=== PATIENT | male | born 1990 | race Caucasian/White ===

== ENCOUNTER 2018-07-31 12:00 | Emergency (ER) | payer SELFPAY ==
[~2018-07-31] VITALS: Ht 182.8 cm; Wt 63.5 kg
[2018-07-31 12:00] VITALS: BP 128/74
[2018-07-31] MEDS ORDERED: SEPTDS PO (12:30)
[2018-07-31] MEDS ORDERED: CEPHALEXIN500 M1 PO (12:30)
== END 2018-07-31 12:47 | disposition home or self-care (01) ==
LOC: ED 12:00
DX: L03.011 Cellulitis of right finger (principal); F17.200 Nicotine dependence, unspecified, uncomplicated

== ENCOUNTER 2019-08-19 07:51 | Emergency (ER) | payer SELFPAY ==
[~2019-08-19] VITALS: Ht 182.8 cm; Wt 72.6 kg
[~2019-08-19 07:51] MED LIST: CEPHALEXIN500 M1 PO; SEPTDS PO
[2019-08-19 10:30] VITALS: BP 128/72
== END 2019-08-19 11:15 | disposition home or self-care (01) ==
LOC: ED 07:51
DX: S40.011A Contusion of right shoulder, initial encounter (principal); R07.9 Chest pain, unspecified; W10.8XXA Fall (on) (from) other stairs and steps, initial encounter; Y93.89 Activity, other specified; Y92.89 Other specified places as the place of occurrence of the external cause; Y99.8 Other external cause status

== ENCOUNTER 2022-06-08 10:37 | Emergency (ER) | payer SELFPAY ==
[~2022-06-08] VITALS: Wt 85.3 kg
[2022-06-08 11:06] LABS: BASO % 0.3 % (0.0-1.0); EOS # 0.2 10*3/uL (0.0-0.4); HEMATOCRIT 46.3 % (42.0-52.0); LYMPH # 3.1 10*3/uL (1.3-4.4); LYMPH % 35.5 % (27.0-41.0); MEAN CELL VOLUME 86.5 fl (80.0-94.0); MEAN CORPUSCULAR HGB CONC 33.5 g/dl (33.0-37.0); MEAN PLATELET VOLUME 9.3 fl (9.6-12.3); MONO # 0.9 10*3/uL (0.1-1.0); MONO % 10.6 % (3.0-9.0); NEUT # 4.4 10*3/uL (2.3-7.9); NEUT % 51.3 % (47.0-73.0); PLATELET COUNT AUTOMATED 321 10*3/uL (130-400); RED BLOOD COUNT 5.35 10*6/uL (4.50-5.90); WHITE BLOOD COUNT 8.6 10*3/uL (4.8-10.8)
[2022-06-08 11:23] LABS: ACT PARTIAL THROMBO TIME 25.6 SECONDS (20.0-32.1)
[2022-06-08 11:26] LABS: ALKALINE PHOSPHATASE 91 U/L (46-116); BUN 11 mg/dl (9-23); CHLORIDE 104 mmol/L (98-107); LIPASE 27 U/L (12-53); POTASSIUM 3.7 mmol/L (3.4-5.1); SGPT/ALT 31 U/L (10-49)
[2022-06-08 15:14] VITALS: BP 131/85
== END 2022-06-08 17:00 | disposition home or self-care (01) ==
LOC: ED 10:37
PROVIDERS: Emergency Medicine
DX: R56.9 Unspecified convulsions (principal); S01.312A Laceration without foreign body of left ear, initial encounter; W18.39XA Other fall on same level, initial encounter; Y93.89 Activity, other specified; Y92.89 Other specified places as the place of occurrence of the external cause; Y99.8 Other external cause status

== ENCOUNTER 2022-06-19 08:34 | Emergency (ER) | payer SELFPAY ==
[~2022-06-19] VITALS: Wt 81.6 kg
[2022-06-19 08:39] VITALS: BP 135/90
[2022-06-20] MEDS ORDERED: KEPPRA750 MG PO (14:58)
== END 2022-06-19 09:02 | disposition home or self-care (01) ==
LOC: ED 08:34
DX: S01.312D Laceration without foreign body of left ear, subsequent encounter (principal); M25.512 Pain in left shoulder; X58.XXXD Exposure to other specified factors, subsequent encounter

== ENCOUNTER 2022-06-20 09:00 | Emergency (ER) | payer SELFPAY ==
[2022-06-20 09:30] LABS: BASO % 0.3 % (0.0-1.0); EOS # 0.1 10*3/uL (0.0-0.4); EOS % 1.4 % (1.0-4.0); LYMPH # 2.6 10*3/uL (1.3-4.4); LYMPH % 30.4 % (27.0-41.0); MEAN CELL VOLUME 87.2 fl (80.0-94.0); MEAN CORPUSCULAR HGB 28.6 pg (27.0-31.0); MEAN CORPUSCULAR HGB CONC 32.8 g/dl (33.0-37.0); MONO # 0.8 10*3/uL (0.1-1.0); MONO % 9.4 % (3.0-9.0); NEUT % 58.2 % (47.0-73.0); PLATELET COUNT AUTOMATED 356 10*3/uL (130-400); RED BLOOD COUNT 5.39 10*6/uL (4.50-5.90); RED CELL DISTRI WIDTH 14.3 % (0-14.5); WHITE BLOOD COUNT 8.6 10*3/uL (4.8-10.8)
[2022-06-20 09:47] LABS: ALKALINE PHOSPHATASE 115 U/L (46-116); BUN 11 mg/dl (9-23); CHLORIDE 104 mmol/L (98-107); LIPASE 27 U/L (12-53); POTASSIUM 4.3 mmol/L (3.4-5.1); SGPT/ALT 30 U/L (10-49); TOTAL PROTEIN 8.2 gm/dL (6.0-8.0)
[2022-06-20 09:52] LABS: ACT PARTIAL THROMBO TIME 26.9 SECONDS (20.0-32.1)
[2022-06-20 11:25] VITALS: BP 155/88
[2022-06-20] MEDS ORDERED: KEPPRA750 MG PO (14:58)
== END 2022-06-20 14:34 | disposition home or self-care (01) ==
LOC: ED 09:00
PROVIDERS: Emergency Medicine
DX: R56.9 Unspecified convulsions (principal)

== ENCOUNTER → 2022-06-21 | Outpatient (CLI) | payer SELFPAY ==
[~2022-06-21] MED LIST changes: +KEPPRA750 MG PO
== END | disposition home or self-care (01) ==
LOC: RESCLI 09:15
PROVIDERS: ATTEND Internal Medicine
DX: R56.9 Unspecified convulsions (principal); F17.200 Nicotine dependence, unspecified, uncomplicated; Z98.890 Other specified postprocedural states; Z79.899 Other long term (current) drug therapy

== ENCOUNTER 2022-08-02 10:16 | Emergency (ER) | payer SELFPAY ==
[2022-08-02 10:22] VITALS: BP 134/72
[2022-08-02] MEDS ORDERED: KEPPRA750 MG PO (10:24)
== END 2022-08-02 10:27 | disposition home or self-care (01) ==
LOC: ED 10:16
DX: G40.909 Epilepsy, unspecified, not intractable, without status epilepticus (principal); Z76.0 Encounter for issue of repeat prescription

== ENCOUNTER 2022-08-28 11:22 | Emergency (ER) | payer SELFPAY ==
[~2022-08-28] VITALS: Ht 172.7 cm; Wt 86.2 kg
[2022-08-28 11:38] VITALS: BP 131/80
== END 2022-08-28 13:11 | disposition home or self-care (01) ==
LOC: ED 11:22
DX: S92.411A Displaced fracture of proximal phalanx of right great toe, initial encounter for closed fracture (principal); X58.XXXA Exposure to other specified factors, initial encounter; Y93.89 Activity, other specified; Y92.89 Other specified places as the place of occurrence of the external cause; Y99.8 Other external cause status

== ENCOUNTER → 2022-09-18 | Outpatient (CLI) | payer SELFPAY | END | disposition home or self-care (01) | LOC: RESCLI 13:10 | PROVIDERS: ATTEND Internal Medicine | DX: S92.901A Unspecified fracture of right foot, initial encounter for closed fracture (principal); R56.9 Unspecified convulsions; F17.210 Nicotine dependence, cigarettes, uncomplicated; F10.90 Alcohol use, unspecified, uncomplicated; F12.90 Cannabis use, unspecified, uncomplicated; Z79.899 Other long term (current) drug therapy; Z88.8 Allergy status to other drugs, medicaments and biological substances; Z98.890 Other specified postprocedural states; X58.XXXA Exposure to other specified factors, initial encounter; Y93.89 Activity, other specified; Y92.89 Other specified places as the place of occurrence of the external cause; Y99.8 Other external cause status ==

== ENCOUNTER 2023-07-09 03:32 | Emergency (ER) | payer SELFPAY ==
[~2023-07-09] VITALS: Wt 81.6 kg
[2023-07-09 03:38] VITALS: BP 137/95
[2023-07-09] MEDS ORDERED: CYCLOBENZAPRINE10 MG PO (05:16)
[2023-07-09] MEDS ORDERED: Cyclobenzaprine Hydrochlorid 10 MG TAB PO ONE (05:20)
== END 2023-07-09 05:32 | disposition home or self-care (01) ==
LOC: ED 03:32
DX: S16.1XXA Strain of muscle, fascia and tendon at neck level, initial encounter (principal); Z87.891 Personal history of nicotine dependence; X58.XXXA Exposure to other specified factors, initial encounter; Y93.89 Activity, other specified; Y92.89 Other specified places as the place of occurrence of the external cause; Y99.8 Other external cause status

== ENCOUNTER 2023-08-11 09:03 | Emergency (ER) | payer SELFPAY ==
[~2023-08-11] VITALS: Ht 177.8 cm; Wt 81.6 kg
[~2023-08-11 09:03] MED LIST changes: +CYCLOBENZAPRINE10 MG PO
[2023-08-11 09:18] VITALS: BP 138/76
[2023-08-11] MEDS ORDERED: Acetaminophen/Oxycodone 5 MG/325 MG TABLET PO ONE (09:25)
[2023-08-11] MEDS ORDERED: MELOXICAM15 MG PO (09:28)
== END 2023-08-11 09:42 | disposition home or self-care (01) ==
LOC: ED 09:03
DX: S43.402A Unspecified sprain of left shoulder joint, initial encounter (principal); M54.2 Cervicalgia; X50.0XXA Overexertion from strenuous movement or load, initial encounter; Y93.89 Activity, other specified; Y92.89 Other specified places as the place of occurrence of the external cause; Y99.0 Civilian activity done for income or pay

== ENCOUNTER 2023-10-24 12:20 | Emergency (ER) | payer OTHER ==
[~2023-10-24] VITALS: Ht 175.2 cm; Wt 86.2 kg
[~2023-10-24 12:20] MED LIST changes: +MELOXICAM15 MG PO
[2023-10-24 12:45] VITALS: BP 145/90
[2023-10-24 12:56] LABS: BASO % 0.3 % (0.0-1.0); EOS # 0.1 10*3/uL (0.0-0.4); HEMATOCRIT 45.2 % (42.0-52.0); LYMPH % 32.9 % (27.0-41.0); MEAN CELL VOLUME 87.9 fl (80.0-94.0); MEAN CORPUSCULAR HGB 29.2 pg (27.0-31.0); MEAN CORPUSCULAR HGB CONC 33.2 g/dl (33.0-37.0); MEAN PLATELET VOLUME 9.4 fl (9.6-12.3); MONO # 1.1 10*3/uL (0.1-1.0); NEUT # 4.9 10*3/uL (2.3-7.9); NEUT % 53.3 % (47.0-73.0); PLATELET COUNT AUTOMATED 318 10*3/uL (130-400); RED BLOOD COUNT 5.14 10*6/uL (4.50-5.90); RED CELL DISTRI WIDTH 14.6 % (0-14.5); WHITE BLOOD COUNT 9.2 10*3/uL (4.8-10.8)
[2023-10-24 13:14] LABS: ALKALINE PHOSPHATASE 89 U/L (46-116); BUN 10 mg/dl (9-23); CHLORIDE 104 mmol/L (98-107); SGPT/ALT 47 U/L (5-49); TOTAL PROTEIN 7.8 gm/dL (6.0-8.0)
[2023-10-24 13:15] LABS: ACT PARTIAL THROMBO TIME 24.1 SECONDS (20.0-32.1)
[2023-10-24 13:16] LABS: ETHYL ALCOHOL < 3.0 mg/dl (<3)
[2023-10-24] MEDS ORDERED: SODIUM CHLORIDE 0.9% 1,000 ML IV ONE (13:30)
[2023-10-24] MEDS ORDERED: LORazepam 2 MG/ML VIAL IV ONE (13:30)
[2023-10-24] MEDS ORDERED: LEVETIRACETAM 500 MG in SODIUM CHLORIDE 0.9% 100 ML IV ONE (15:40)
[2023-10-24] MEDS ORDERED: LEVETIRACETAM 1,500 MG in SODIUM CHLORIDE 0.9% 100 ML IV ONE (15:40)
[2023-10-24] MEDS ORDERED: LEVETIRACETAM IN NACL (ISO-OS) 100 ML IV ONE (15:45)
[2023-10-24] MEDS ORDERED: KEPPRA750 MG PO (16:42)
== END 2023-10-24 17:25 | disposition home or self-care (01) ==
LOC: ED 12:20
PROVIDERS: Internal Medicine
DX: G40.909 Epilepsy, unspecified, not intractable, without status epilepticus (principal); Z91.199 Patient's noncompliance with other medical treatment and regimen due to unspecified reason; V89.2XXA Person injured in unspecified motor-vehicle accident, traffic, initial encounter; Y93.I9 Activity, other involving external motion; Y92.488 Other paved roadways as the place of occurrence of the external cause; Y99.8 Other external cause status

== ENCOUNTER 2023-12-17 07:00 | Emergency (ER) | payer SELFPAY ==
[~2023-12-17] VITALS: Ht 162.5 cm; Wt 81.6 kg
[2023-12-17 07:14] VITALS: BP 130/80
[2023-12-17] MEDS ORDERED: MELOXICAM15 MG PO (08:03)
== END 2023-12-17 08:13 | disposition home or self-care (01) ==
LOC: ED 07:00
DX: S92.351A Displaced fracture of fifth metatarsal bone, right foot, initial encounter for closed fracture (principal); X58.XXXA Exposure to other specified factors, initial encounter; Y93.89 Activity, other specified; Y92.89 Other specified places as the place of occurrence of the external cause; Y99.8 Other external cause status

== ENCOUNTER 2024-03-14 10:11 | Emergency (ER) | payer SELFPAY ==
[~2024-03-14] VITALS: Ht 175.2 cm; Wt 77.1 kg
[2024-03-14 10:15] VITALS: BP 149/77
[2024-03-14] MEDS ORDERED: SODIUM CHLORIDE 0.9% 1,000 ML IV ONE (10:20)
[2024-03-14] MEDS ORDERED: LEVETIRACETAM IN NACL (ISO-OS) 100 ML IV ONE (10:20)
[2024-03-14 10:31] LABS: BASO % 0.4 % (0.0-1.0); EOS # 0.1 10*3/uL (0.0-0.4); EOS % 1.7 % (1.0-4.0); MEAN CORPUSCULAR HGB CONC 33.3 g/dl (33.0-37.0); MEAN PLATELET VOLUME 9.6 fl (9.6-12.3); MONO # 0.7 10*3/uL (0.1-1.0); MONO % 9.4 % (3.0-9.0); NEUT # 4.3 10*3/uL (2.3-7.9); NEUT % 56.9 % (47.0-73.0); PLATELET COUNT AUTOMATED 287 10*3/uL (130-400); RED BLOOD COUNT 5.52 10*6/uL (4.50-5.90); RED CELL DISTRI WIDTH 14.9 % (0-14.5); WHITE BLOOD COUNT 7.5 10*3/uL (4.8-10.8)
[2024-03-14 10:49] LABS: BUN 10 mg/dl (9-23); CHLORIDE 101 mmol/L (98-107); POTASSIUM 4.2 mmol/L (3.4-5.1)
[2024-03-14] MEDS ORDERED: KEPPRA750 MG PO (11:18)
== END 2024-03-14 11:07 | disposition home or self-care (01) ==
LOC: ED 10:11
PROVIDERS: Emergency Medicine
DX: R56.9 Unspecified convulsions (principal); F17.200 Nicotine dependence, unspecified, uncomplicated

== ENCOUNTER 2024-05-20 13:29 | Emergency (ER) | payer SELFPAY ==
[~2024-05-20] VITALS: Ht 182.8 cm; Wt 81.6 kg
[2024-05-20] MEDS ORDERED: diazePAM 10 MG/2 ML SYR IV ONE (13:45)
[2024-05-20] MEDS ORDERED: LEVETIRACETAM IN NACL (ISO-OS) 100 ML IV ONE (13:45)
[2024-05-20 13:53] VITALS: BP 127/80
[2024-05-20 14:10] LABS: BASO % 0.2 % (0.0-1.0); EOS % 0.3 % (1.0-4.0); HEMATOCRIT 48.1 % (42.0-52.0); MEAN CELL VOLUME 87.5 fl (80.0-94.0); MEAN CORPUSCULAR HGB 29.1 pg (27.0-31.0); MEAN CORPUSCULAR HGB CONC 33.3 g/dl (33.0-37.0); MEAN PLATELET VOLUME 9.1 fl (9.6-12.3); MONO # 0.8 10*3/uL (0.1-1.0); MONO % 7.2 % (3.0-9.0); NEUT # 8.1 10*3/uL (2.3-7.9); NEUT % 77.3 % (47.0-73.0); PLATELET COUNT AUTOMATED 311 10*3/uL (130-400); WHITE BLOOD COUNT 10.5 10*3/uL (4.8-10.8)
[2024-05-20 14:22] LABS: ACT PARTIAL THROMBO TIME 25.5 SECONDS (20.0-32.1)
[2024-05-20 14:31] LABS: ALKALINE PHOSPHATASE 98 U/L (46-116); BUN 9 mg/dl (9-23); CHLORIDE 103 mmol/L (98-107); LIPASE 29 U/L (12-53); POTASSIUM 4.1 mmol/L (3.4-5.1); SGPT/ALT 76 U/L (5-49); TOTAL PROTEIN 8.1 gm/dL (6.0-8.0)
[2024-05-20] MEDS ORDERED: KEPPRA1000 MG PO (15:39)
[2024-05-20] MEDS ORDERED: LIBRIUM5 MG PO (15:40)
[2024-05-20] MEDS ORDERED: VITAMIN B-1100 M2 PO (15:45)
== END 2024-05-20 15:50 | disposition home or self-care (01) ==
LOC: ED 13:29
PROVIDERS: Emergency Medicine
DX: R56.9 Unspecified convulsions (principal); F10.239 Alcohol dependence with withdrawal, unspecified; E86.0 Dehydration; Z79.01 Long term (current) use of anticoagulants; Y90.9 Presence of alcohol in blood, level not specified

== ENCOUNTER 2024-07-24 11:21 | Emergency (ER) | payer SELFPAY ==
[~2024-07-24] VITALS: Ht 177.8 cm; Wt 83.9 kg
[~2024-07-24 11:21] MED LIST changes: +KEPPRA1000 MG PO; +LIBRIUM5 MG PO; +VITAMIN B-1100 M2 PO
[2024-07-24 11:25] VITALS: BP 140/92
[2024-07-24] MEDS ORDERED: SODIUM CHLORIDE 0.9% 1,000 ML IV ONE (11:35)
[2024-07-24] MEDS ORDERED: LEVETIRACETAM IN NACL (ISO-OS) 100 ML IV ONE (11:35)
[2024-07-24 11:50] LABS: BASO % 0.3 % (0.0-1.0); EOS # 0.1 10*3/uL (0.0-0.4); EOS % 1.7 % (1.0-4.0); HEMATOCRIT 46.2 % (42.0-52.0); MEAN CELL VOLUME 88.3 fl (80.0-94.0); MEAN CORPUSCULAR HGB 29.4 pg (27.0-31.0); MEAN CORPUSCULAR HGB CONC 33.3 g/dl (33.0-37.0); MEAN PLATELET VOLUME 9.5 fl (9.6-12.3); MONO # 0.8 10*3/uL (0.1-1.0); MONO % 13.3 % (3.0-9.0); NEUT # 3.1 10*3/uL (2.3-7.9); NEUT % 51.8 % (47.0-73.0); PLATELET COUNT AUTOMATED 314 10*3/uL (130-400); RED BLOOD COUNT 5.23 10*6/uL (4.50-5.90); RED CELL DISTRI WIDTH 14.5 % (0-14.5); WHITE BLOOD COUNT 5.9 10*3/uL (4.8-10.8)
[2024-07-24 12:13] LABS: ALKALINE PHOSPHATASE 98 U/L (46-116); BUN 9 mg/dl (9-23); CHLORIDE 106 mmol/L (98-107); POTASSIUM 4.2 mmol/L (3.4-5.1); SGPT/ALT 99 U/L (5-49); TOTAL PROTEIN 7.8 gm/dL (6.0-8.0)
== END 2024-07-24 14:42 | disposition home or self-care (01) ==
LOC: ED 11:21
PROVIDERS: Physician Assistant Medical
DX: R56.9 Unspecified convulsions (principal); Z79.899 Other long term (current) drug therapy; Z91.199 Patient's noncompliance with other medical treatment and regimen due to unspecified reason